=== PATIENT | male | born 1995 | race Two or more races ===

== ENCOUNTER 2018-09-15 20:10 | Emergency (ER) | payer OTHER ==
[2018-09-15] MEDS ORDERED: DIPHTH,PERTUSS(ACELL),TET 0.5 ML DISP.SYRIN IM ONE (20:28)
--- NOTE | 2018-09-15 20:29 | PDOC ---
History of Present Illness - General History Source: Patient Exam Limitations: No Limitations - History of Present Illness Initial Comments: 09/15/18 20:29 A portion of this note was documented by scribe services under my direction. I have reviewed the details of the note, within reason, and agree with the documentation with the following case summary and management plan written by me. Patient treated in the ED. Nursing notes are reviewed and incorporated into the medical decision-making. Vital signs reviewed. Procedure note laceration repair with Dermabond. Laceration was cleaned and then closed with Dermabond patient tolerated well <TerirosemarieFazalmarlaMinisterio dumas I - Last Filed: 09/15/18 20:29> - General History Source: Patient Exam Limitations: No Limitations - History of Present Illness Initial Comments: 09/15/18 20:42 The patient is a 22 year old male with no significant PMH who presents to the emergency department with a right finger laceration since earlier today. 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 The patient states that he had gotten his tetanus shot this morning prior to his incident. The patient denies any numbness, tingling or weakness. He denies any fever chills, nausea, vomiting, diarrhea, constipation or urinary symptoms. The patient denies any other complaints. PAST MEDICAL HISTORY: no significant history PAST SURGICAL HISTORY: no significant history FAMILY HISTORY: no pertinent history SOCIAL HISTORY: Pt lives with family and is employed. MEDICATIONS: reviewed ALLERGIES: As per nursing notes General: No fevers or chills, no weakness, no weight loss HEENT: No change in vision. No sore throat,. No ear pain CardioVascular: No chest pain or shortness of breath Respiratory:No cough, or wheezing. Gastrointestinal: no nausea, vomiting, diarrhea or constipation, No rectal bleeding Genitourinary: No dysuria, hematuria, or frequency Musculoskeletal: (+)right finger laceration. No joint or muscle pain or swelling Neurologic: No headache, vertigo, dizziness or loss of consciousness Psychiatric: nor depression Skin: No rashes or easy bruising Endocrine: no increased thirst or abnormal weight change Allergic: no skin or latex allergy All other systems reviewed and normal GENERAL: The patient is awake, alert, and fully oriented, in no acute distress. HEAD: Normal with no signs of trauma. EYES: Pupils equal, round and reactive to light, extraocular movements intact, sclera anicteric, conjunctiva clear. EXTREMITIES: (+)small avulsion to tip of right index finger with associated lac of medial aspect of distal phalanx. No active bleeding. Normal range of motion, no edema. NEUROLOGICAL: Normal speech, normal gait. PSYCH: Normal mood, normal affect. SKIN: Warm, Dry, normal turgor, no rashes or lesions noted. <Devaughn Mayfield - Last Filed: 09/15/18 20:43> - General Chief Complaint: Injury Stated Complaint: FINGER LACERATION Time Seen by Provider: 09/15/18 20:16 Past History <Ministerio Phelps I - Last Filed: 09/15/18 20:29> <Devaughn Mayfield - Last Filed: 09/15/18 20:43> - Past Medical History Allergies/Adverse Reactions: Allergies Allergy/AdvReac Type Severity Reaction Status Date / Time No Known Allergies Allergy Verified 09/15/18 20:11 Home Medications: Ambulatory Orders NK [No Known Home Medication] 09/15/18 *Physical Exam - Vital Signs Last Vital Signs Temp Pulse Resp BP Pulse Ox 98.2 F 93 H 20 126/78 100 09/15/18 20:11 09/15/18 20:11 09/15/18 20:11 09/15/18 20:11 09/15/18 20:11 <Devaughn Mayfield - Last Filed: 09/15/18 20:43> Moderate Sedation - Procedure Monitoring Vital Signs: Procedure Monitoring Vital Signs Temperature 98.2 F 09/15/18 20:11 Pulse Rate 93 H 09/15/18 20:11 Respiratory Rate 20 09/15/18 20:11 Blood Pressure 126/78 09/15/18 20:11 O2 Sat by Pulse Oximetry (%) 100 09/15/18 20:11 <Devaughn Mayfield - Last Filed: 09/15/18 20:43> *DC/Admit/Observation/Transfer <Ministerio Phelps I - Last Filed: 09/15/18 20:29> - Attestations Scribe Attestion: 09/15/18 20:43 Documentation prepared by Devaughn Mayfield, acting as biomedical engineering professor for Ministerio Phelps MD. <Devaughn Mayfield - Last Filed: 09/15/18 20:43> Diagnosis at time of Disposition: Laceration of right index finger - Discharge Dispostion Disposition: HOME - Patient Instructions Printed Discharge Instructions: DI for Laceration Repair With Dermabond Additional Instructions: Read over and follow the Dermabond instructions. Keep it dry for 72 hours do not use any petroleum based products on it Return to the emergency department immediately with ANY new, persistent or worsening symptoms. Continue any medications as previously prescribed by your physician. You should follow up with your primary doctor as soon as possible regarding today's emergency department visit. . Please make sure your doctor reviews the results of your emergency evaluation. Thank you for coming to the Emergency Department today for your care. It was a pleasure to see you today. Please note that your evaluation is INCOMPLETE until you follow-up with your doctor.
[2018-09-15 20:30] VITALS: BP 126/78; PULSE 93; TEMP 98.2; BMI 24.3
== END 2018-09-15 20:59 | disposition home or self-care (01) ==
LOC: FER 20:10
PROC: 0HQFXZZ Repair Right Hand Skin, External Approach (ICD-10-PCS; principal; 2018-09-15)
DX: S61.210A Laceration without foreign body of right index finger without damage to nail, initial encounter (principal); W31.89XA Contact with other specified machinery, initial encounter; Y93.G1 Activity, food preparation and clean up; Y92.89 Other specified places as the place of occurrence of the external cause; Y99.0 Civilian activity done for income or pay
CPT/HCPCS: 99281-25

== ENCOUNTER 2018-09-22 13:09 | Emergency (ER) | payer OTHER ==
[2018-09-22 13:42] VITALS: BP 124/76; PULSE 81; TEMP 98.6; BMI 24.3
--- NOTE | 2018-09-22 14:14 | PDOC ---
History of Present Illness - General Chief Complaint: Nausea/Vomiting Stated Complaint: VOMITING Time Seen by Provider: 09/22/18 13:12 - History of Present Illness Initial Comments: 09/26/18 09:14 Chief complaint: Nausea and vomiting History of present illness: Patient complains of waking up 2 or 3 days a week with nausea and repetitive vomiting. This usually occurs after smoking marijuana the night before. Review of systems: No hematemesis, melena, bloody stool. Occasional epigastric pain described as a gnawing sensation. No lower abdominal pain. No chest pain, shortness of breath, lightheadedness, dizziness, body aches. Past medical history: GERD, recommended proton pump inhibitors but takes sporadically. Otherwise healthy Social history: Frequently smokes marijuana as noted above. No other drugs. Social alcohol, none recently. 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 Family history: Reviewed and noncontributory Physical exam alert and oriented well-developed well-nourished no distress cheerful and cooperative. The patient is not nauseated at present and has had no vomiting in the past hour. Afebrile, vital signs normal No pallor or icterus HEENT clear Neck supple without bruit mass or nodes Chest clear CV regular without murmur rub or gallop Abdomen nondistended. Bowel sounds normal. Soft without mass tenderness organomegaly. No CVAT Skin clear, no rash, adequate turgor and wet mucous membranes Extremities no CCE Neurological intact Impression: GERD versus early peptic ulcer disease versus cyclic vomiting syndrome secondary to marijuana Plan: To stop the use of marijuana and alcohol completely as a trial. Proton pump inhibitor. GI follow-up for further evaluation and treatment. Return to ER if increased abdominal pain, intractable vomiting, or vomiting blood. Fully ambulatory and in no distress upon discharge, feeling better after administration of Protonix. To follow-up as directed Past History - Past Medical History Allergies/Adverse Reactions: Allergies Allergy/AdvReac Type Severity Reaction Status Date / Time No Known Allergies Allergy Verified 09/22/18 13:42 Home Medications: Ambulatory Orders Ondansetron [Zofran Odt -] 4 - 8 mg SL TID PRN #20 od.tablet 09/22/18 Pantoprazole Sodium [Protonix -] 40 mg PO DAILY #14 tablet.ec 09/22/18 COPD: No - Immunization History Immunization Up to Date: Yes - Suicide/Smoking/Psychosocial Hx Smoking History: Current every day smoker Have you smoked in the past 12 months: Yes Number of Cigarettes Smoked Daily: 20 Information on smoking cessation initiated: No Hx Alcohol Use: No Drug/Substance Use Hx: No *Physical Exam - Vital Signs Last Vital Signs Temp Pulse Resp BP Pulse Ox 98.6 F 81 20 124/76 98 09/22/18 13:10 09/22/18 13:10 09/22/18 13:10 09/22/18 13:10 09/22/18 13:10 *DC/Admit/Observation/Transfer Diagnosis at time of Disposition: Gastritis Qualifiers: Gastritis type: unspecified gastritis Chronicity: chronic Gastritis bleeding: without bleeding Qualified Code(s): K29.50 - Unspecified chronic gastritis without bleeding - Discharge Dispostion Disposition: HOME Condition at time of disposition: Improved Decision to Admit order: No - Prescriptions Prescriptions: Ondansetron [Zofran Odt -] 4 - 8 mg SL TID PRN #20 od.tablet PRN Reason: Nausea And/Or Vomiting Pantoprazole Sodium [Protonix -] 40 mg PO DAILY #14 tablet.ec - Referrals - Patient Instructions Printed Discharge Instructions: DI for Nausea -- Adult, DI for Vomiting -- Adult Additional Instructions: No marajuana or alcohol, as there can aggravate symptoms. medication as directed. Return ER if worse Otherwise see Note Teller for further evaluation and treatment as directed - Post Discharge Activity Forms/Work/School Notes: Back to Work
[2018-09-22] MEDS ORDERED: ONDANSETRON *ODT* 4 MG TABLET SL ONE (14:25)
[2018-09-22] MEDS ORDERED: PANTOPRAZOLE 40 MG TABLET (FP) PO ONE (14:26)
[2018-09-22] MEDS ORDERED: PANTOPRAZOLE 40 MG TABLET (FP) ONE (14:31)
[2018-09-22] MEDS ORDERED: ONDANSETRON *ODT* 4 MG TABLET ONE (14:31)
== END 2018-09-22 14:41 | disposition home or self-care (01) ==
LOC: FER 13:09
DX: K29.50 Unspecified chronic gastritis without bleeding (principal); F17.210 Nicotine dependence, cigarettes, uncomplicated
CPT/HCPCS: 99282-25; Q0162

== ENCOUNTER 2023-02-19 15:54 | Emergency (ER) | payer OTHER ==
[2023-02-19 16:00] VITALS: BP 128/87; PULSE 81; RESP 18; TEMP 97.8; BMI 24.8
[2023-02-19] MEDS ORDERED: DIPHTH,PERTUSS(ACELL),TET 0.5 ML DISP.SYRIN IM ONE ×2 (16:02→16:51)
[2023-02-19] MEDS ORDERED: ACETAMINOPHEN 500 MG TABLET (FP) PO ONE (16:10)
[2023-02-19] MEDS ORDERED: ACETAMINOPHEN 500 MG TABLET (FP) ONE (16:30)
== END 2023-02-19 17:42 | disposition home or self-care (01) ==
LOC: FER 15:54
PROC: 0HQGXZZ Repair Left Hand Skin, External Approach (ICD-10-PCS; principal; 2023-02-19)
PROC: 3E0234Z Introduction of Serum, Toxoid and Vaccine into Muscle, Percutaneous Approach (ICD-10-PCS; 2023-02-19)
DX: S61.412A Laceration without foreign body of left hand, initial encounter (principal); W26.0XXA Contact with knife, initial encounter; Y93.G3 Activity, cooking and baking; Y99.0 Civilian activity done for income or pay
CPT/HCPCS: 90715; 99282-25

== ENCOUNTER 2025-02-14 07:13 | Emergency (ER) | payer OTHER ==
[2025-02-14 07:24] VITALS: BP 104/57; PULSE 83; RESP 20; TEMP 97.6; BMI 29.2
[2025-02-14] MEDS ORDERED: FAMOTIDINE 20 MG/50 ML IVPB 20 MG/50 ML MG IVPB ONE ×2 (07:33→07:34)
[2025-02-14] MEDS ORDERED: MAG HYDROX/AL HYDROX/SIMETH 30 ML UNIT-DOSE CUP ONE (07:33)
[2025-02-14] MEDS ORDERED: ONDANSETRON 4 MG/2 ML VIAL ONE (07:33)
[2025-02-14] MEDS: ONDANSETRON 4 MG/2 ML VIAL IVPB ONE (07:47)
[2025-02-14] MEDS: SODIUM CHLORIDE 0.9% 500 ML INFUS.BAG IV ONE (07:47)
[2025-02-14] MEDS: MAG HYDROX/AL HYDROX/SIMETH 30 ML UNIT-DOSE CUP PO ONE (07:47)
[2025-02-14] MEDS: FAMOTIDINE 20 MG/50 ML IVPB 20 MG/50 ML MG IVPB ONE (07:47)
[2025-02-14 08:03] LABS: URINE APPEARANCE CLEAR; URINE BILIRUBIN NEGATIVE (NEGATIVE); URINE COLOR YELLOW; URINE GLUCOSE (UA) NEGATIVE (NEGATIVE); URINE KETONE NEGATIVE (NEGATIVE); URINE LEUK ESTERASE NEGATIVE (NEGATIVE); URINE NITRITE NEGATIVE (NEGATIVE); URINE PROTEIN NEGATIVE (NEGATIVE); URINE UROBILINOGEN 1.0 mg/dL (0.2-1.0)
[2025-02-14 08:06] LABS: ABSOLUTE IMMATURE GRANULOCYTES 0.02 x10^3/uL (0.0-0.031); BASOPHILS # 0.07 x10^3/uL (0.01-0.08); EOSINOPHIL % 6.8 % (0.8-7.0); EOSINOPHILS # 0.45 x10^3/uL (0.04-0.54); MCHC 31.8 g/dl (32.3-36.5); MEAN CELL VOLUME 85.8 fl (79.0-92.2); MEAN PLT VOLUME 10.4 fl (9.4-12.4); MONOCYTE # 0.49 x10^3/uL (0.30-0.82); MONOCYTE % 7.4 % (5.3-12.2); RDW 12.9 % (11.9-15.3)
[2025-02-14 08:27] LABS: GLUCOSE,RANDOM 80.0 mg/dL (74-106); TOT PROT 8.0 g/dl (6.4-8.2)
[2025-02-14 08:28] LABS: CO2 26.0 mmol/L (21-32)
[2025-02-14 08:30] LABS: ALK PHOS 98.0 U/L (40-150)
[2025-02-14 08:32] LABS: SGOT/AST 42.0 U/L (5-34); SGPT/ALT 76.0 U/L (0-55)
[2025-02-14 08:33] LABS: CREATININE 0.86 mg/dL (0.55-1.3)
[2025-02-14 10:35] LABS: HCV DIAGNOSTIC IN-HOUSE W/RFLX NON-REACTIVE (NONREACTIVE)
[2025-02-14 11:44] LABS: HIV INTERPRETATION NEGATIVE (NEGATIVE)
== END 2025-02-14 11:24 | disposition home or self-care (01) ==
LOC: JER 07:13
PROC: 3E033GC Introduction of Other Therapeutic Substance into Peripheral Vein, Percutaneous Approach (ICD-10-PCS; principal; 2025-02-14)
PROC: 3E033GC Introduction of Other Therapeutic Substance into Peripheral Vein, Percutaneous Approach (ICD-10-PCS; 2025-02-14)
DX: K52.9 Noninfective gastroenteritis and colitis, unspecified (principal); K57.32 Diverticulitis of large intestine without perforation or abscess without bleeding; K82.4 Cholesterolosis of gallbladder; K76.0 Fatty (change of) liver, not elsewhere classified; R10.11 Right upper quadrant pain; R11.2 Nausea with vomiting, unspecified
CPT/HCPCS: 36415; 70450-TC; 74177-TC; 76705-TC; 80053; 81003; 83690; 85025; 86140; 86803; 86850; 86900; 86901; 87086; 87389; 96365; 96375; 99285-25; Q9967